=== PATIENT | female | born 1980 ===

== ENCOUNTER 2016-10-28 11:00 | Inpatient (IN) | payer MEDICAID, OTHER ==
[2016-10-28] MEDS ORDERED: Sodium Chloride 0.9% 1,000 ML IV STA (11:30)
--- NOTE | 2016-10-28 11:32 | ED PDOC ---
HPI: Abdomen Time Seen by Provider: 10/28/16 11:30 Chief Complaint (Nursing): Abdominal Pain Chief Complaint (Provider): abdominal pain History Per: Patient (36 y/o female h/o gallstones here for evaluation of epigastric pain/ruq pain intermittent x 3 days continuous since this morning. Denies any vomiting/fevers/chills. Has no h/o abdominal surgeries. Denies any chest pain. Admits h/o smoking but no ocp use.) Past Medical History Reviewed: Historical Data, Nursing Documentation, Vital Signs Vital Signs: Last Vital Signs Temp 98 F 10/28/16 11:16 Pulse 61 10/28/16 11:16 Resp 16 10/28/16 11:16 BP 143/97 H 10/28/16 11:16 Pulse Ox 96 10/28/16 14:51 - Medical History PMH: Denies: Chronic Kidney Disease - Family History Family History: States: No Known Family Hx - Home Medications Home Medications: Ambulatory Orders Medication Instructions Recorded Amoxicillin/Clavulanate Pota 1 tab PO BID #14 tab 02/03/15 [Augmentin 875 mg-125 mg] Butenafine Hydrochloride [Lotrimin 0.5 gm TOP BID #30 gm 02/03/15 Ultra] Ibuprofen [Advil] 400 mg PO PRN PRN 02/03/15 Terbinafine HCl [Lamisil At 125 ml] 125 ml TP PRN PRN 02/03/15 - Allergies Allergies/Adverse Reactions: Allergies Allergy/AdvReac Type Severity Reaction Status Date / Time No Known Allergies Allergy Verified 02/03/15 17:44 Review of Systems ROS Statement: Except As Marked, All Systems Reviewed And Found Negative Constitutional: Negative for: Fever, Chills Gastrointestinal: Positive for: Abdominal Pain. Negative for: Nausea, Vomiting Genitourinary Female: Negative for: Dysuria, Frequency, Hematuria Physical Exam - Reviewed Nursing Documentation Reviewed: Yes Vital Signs Reviewed: Yes - Physical Exam Appears: Positive for: Well, Non-toxic, No Acute Distress Head Exam: Positive for: ATRAUMATIC, NORMAL INSPECTION, NORMOCEPHALIC Skin: Positive for: Normal Color, Warm, DRY Eye Exam: Positive for: EOMI, Normal appearance, PERRL ENT: Positive for: Normal ENT Inspection Neck: Positive for: Normal, Painless ROM Cardiovascular/Chest: Positive for: Regular Rate, Rhythm Respiratory: Positive for: CNT, Normal Breath Sounds Gastrointestinal/Abdominal: Positive for: Normal Exam, Bowel Sounds, Soft, Tenderness (epigastric/ruq tenderness noted.) Back: Positive for: Normal Inspection. Negative for: L CVA Tenderness, R CVA Tenderness Extremity: Positive for: Normal ROM Neurologic/Psych: Positive for: Alert, Oriented - Laboratory Results Result Diagrams: 10/28/16 12:00 10/28/16 12:00 - ECG O2 Sat by Pulse Oximetry: 96 - Progress ED Course And Treament: Pepcid 20 mg iv x dose Morphine 4 mg iv x 1 dose Zofran 4 mg iv x 1 dose NS 1 liter 500ml per hour US: equivocal for cholecystitis. gallstones. (+) suggs's sign. No gall bladder wall edema noted d/w Dr. Garcia. Will see tomorrow. vice president regulatory made aware d/w Dr. Henao for admission. Would like zosyn for coverage of possible cholecystitis. does not meet sepsis criteria, vital wnl. Disposition - Clinical Impression Clinical Impression: Gallstone, Abnormal finding on ultrasound - Patient ED Disposition Is Patient to be Admitted: Yes - Disposition Disposition Time: 14:51 Condition: FAIR - Pt Status Changed To: Hospital Disposition Of: Inpatient - Admit Certification Admit to Inpatient:: After my assessment, the patient will require hospitalization for at least two midnights. This is because of the severity of symptoms shown, intensity of services needed, and/or the medical risk in this patient being treated as an outpatient. - POA Present On Arrival: None
[2016-10-28 12:12] LABS: BASO # 0.1 K/uL (0.0-0.2); BASO % 0.7 % (0.0-2.0); EOS # 0.3 K/uL (0.0-0.7); EOS % 2.1 % (0.0-4.0); HEMATOCRIT 41.4 % (34.0-47.0); LYMPH # 3.6 K/uL (1.0-4.3); LYMPH % 28.9 % (20.0-40.0); MEAN CELL VOLUME 89.8 fl (81.0-99.0); MEAN CORPUSCULAR HEMOGLOBIN 29.6 pg (27.0-31.0); MEAN PLATELET VOLUME 7.8 fl (7.2-11.7); MONO # 0.8 K/uL (0.0-0.8); MONO % 6.1 % (0.0-10.0); NEUT # 7.6 K/uL (1.8-7.0); NEUT % 62.2 % (50.0-75.0); RED CELL DISTRIBUTION WIDTH 13.3 % (11.5-14.5); WHITE BLOOD COUNT 12.3 K/uL (4.8-10.8)
[2016-10-28 12:21] LABS: ALB/GLOB RATIO 1.2 (1.0-2.1); ALKALINE PHOSPHATASE 125 U/L (38-126); ALT/SGPT 61 U/L (9-52); AST/SGOT 30 U/L (14-36); BILIRUBIN,TOTAL 0.3 mg/dl (0.2-1.3); BLOOD UREA NITROGEN 13 mg/dl (7-17); CALCIUM 9.7 mg/dL (8.4-10.2); CARBON DIOXIDE 25 mmol/L (22-30); CHLORIDE 106 mmol/L (98-107); GFR AFRICAN-AMERICAN > 60; GLUCOSE,RANDOM 93 mg/dL (65-105); LIPASE 50 U/L (23-300); POTASSIUM 4.2 MMOL/L (3.6-5.0); SODIUM 144 mmol/l (132-148); TOTAL PROTEIN 7.3 G/DL (6.3-8.2)
--- NOTE | 2016-10-28 13:20 | US ---
PROCEDURE: Limited abdominal ultrasound examination HISTORY: r/o cholecystitis COMPARISON: Not available TECHNIQUE: Transabdominal FINDINGS: There are mobile gallstones. The gallbladder wall is not thickened. It measures 2 mm. There is no pericholecystic fluid. A sonographic Myers sign was elicited. These findings are equivocal for cholecystitis. Limited visualization of the liver shows questionable mild intrahepatic biliary dilatation. The common bile duct is nondilated and measures 4 mm. . IMPRESSION: Cholelithiasis. Positive sonographic Myers's sign without additional signs of cholecystitis. Equivocal findings for cholecystitis. Questionable mild intrahepatic biliary dilatation without dilatation of the common bile duct. Correlate with laboratory evaluation. Limited evaluation of the liver was performed.
[2016-10-28] MEDS ORDERED: Piperacillin/Tazobact 4.5 GM in Sodium Chloride 0.9% 100 ML IVPB STA (14:10)
--- NOTE | 2016-10-28 18:07 | CP.PCM.CON ---
History of Present Illness - History of Present Illness History of Present Illness: General Surgery Consult Dr. Garcia CC: RUQ abd pain HPI: 36 y/o F w/ a known Hx of cholelithiasis presents to the ED w/ c/o of abd pain and nausea x2days. Pt indicates pain is localized to RUQ but radiates to her back as well. On presentation to the ED, pain was 10/10 but has since reduced to 7/10 w/ medication. Pain is intermittent. Pt reports feeling similar sensation a few months ago for which she received pain medication and was told to follow up as an outpatient for elective gallbladder surgery. Pain has since returned and is worse. Pt admits to lightheadedness but denies F/C, D/C, SOB, CP , hematuria, dysuria. PMHx: cholelithiasis Meds: none NKDA PSHx: none SHx: smokes 1/2ppd x 20yrs. social EtOH. daily marijuana use FHx: father - unknown cancer, CAD. Mother - multiple personality disorder Review of Systems - Review of Systems All systems: reviewed and no additional remarkable complaints except (that which stated in HPI) Past Patient History - Past Social History Smoking Status: Light Smoker < 10 Cigarettes Daily - CARDIAC Hx Cardiac Disorders: No - PULMONARY Hx Respiratory Disorders: No - NEUROLOGICAL Hx Neurological Disorder: No - HEENT Hx HEENT Problems: No - RENAL Hx Chronic Kidney Disease: No - ENDOCRINE/METABOLIC Hx Endocrine Disorders: No - HEMATOLOGICAL/ONCOLOGICAL Hx Blood Disorders: No - INTEGUMENTARY Hx Dermatological Problems: No - MUSCULOSKELETAL/RHEUMATOLOGICAL Hx Musculoskeletal Disorders: No Hx Falls: No - GASTROINTESTINAL Hx Gastrointestinal Disorders: Yes Other/Comment: Gallstones - GENITOURINARY/GYNECOLOGICAL Hx Genitourinary Disorders: No - PSYCHIATRIC Hx Psychophysiologic Disorder: No Hx Substance Use: No - SURGICAL HISTORY Hx Surgeries: No - ANESTHESIA Hx Anesthesia: No Meds Allergies/Adverse Reactions: Allergies Allergy/AdvReac Type Severity Reaction Status Date / Time No Known Allergies Allergy Verified 02/03/15 17:44 - Medications Medications: Current Medications Piperacillin Sod/Tazobactam (Sod 3.375 gm/ Sodium Chloride) 100 mls @ 100 mls/ hr IVPB Q8 TRISTAN Sodium Chloride (Sodium Chloride 0.9%) 1,000 mls @ 125 mls/hr IV .Q8H TRISTAN Stop: 10/29/16 18:01 Morphine Sulfate (Morphine) 4 mg IVP Q6 PRN PRN Reason: Pain, severe (8-10) Ondansetron HCl (Zofran Inj) 4 mg IVP Q4 PRN PRN Reason: Nausea/Vomiting Physical Exam - Constitutional Appears: Non-toxic, No Acute Distress - Head Exam Head Exam: NORMAL INSPECTION - Eye Exam Eye Exam: Normal appearance - ENT Exam ENT Exam: Mucous Membranes Moist - Respiratory Exam Respiratory Exam: NORMAL BREATHING PATTERN. absent: Accessory Muscle Use, Respiratory Distress - Cardiovascular Exam Cardiovascular Exam: absent: Bradycardia, Tachycardia - GI/Abdominal Exam GI & Abdominal Exam: Soft, Tenderness (TTP RUQ). absent: Guarding, Rebound, Rigid Additional comments: (+) Myers's sign - Extremities Exam Extremities exam: Positive for: normal inspection. Negative for: pedal edema - Neurological Exam Neurological exam: Alert, Oriented x3 - Psychiatric Exam Psychiatric exam: Normal Affect, Normal Mood - Skin Skin Exam: Dry, Intact, Normal Color, Warm Results - Vital Signs Recent Vital Signs: Last Vital Signs Temp 97.8 F 10/28/16 15:45 Pulse 68 10/28/16 17:04 Resp 19 10/28/16 17:04 BP 149/86 10/28/16 15:45 Pulse Ox 97 10/28/16 17:04 - Labs Result Diagrams: 10/28/16 12:00 10/28/16 12:00 - Imaging and Cardiology US - abdomen Status: Image reviewed by me, Report reviewed by me Assessment & Plan - Assessment and Plan (Free Text) Assessment: 36 y/o F w/ symptomatic cholelithiasis - NPO, IVF - IV Abx - pain management - Zofran 4mg Q4 - daily labs - surgery tentatively scheduled for Sunday Pt discussed w/ Dr. Jose Leary DO PGY1
[2016-10-28] MEDS: Sodium Chloride 0.9% 1,000 ML IV SCH (18:09)
[2016-10-28] MEDS ORDERED: Piperacillin/Tazobact 3.375 GM in Sodium Chloride 0.9% 100 ML IVPB SCH (22:00)
[2016-10-28] MEDS: Piperacillin/Tazobact 3.375 GM in Sodium Chloride 0.9% 100 ML IVPB SCH (22:00)
[2016-10-29] MEDS: Sodium Chloride 0.9% 1,000 ML IV SCH ×3 (03:00→17:29)
[2016-10-29] MEDS: Piperacillin/Tazobact 3.375 GM in Sodium Chloride 0.9% 100 ML IVPB SCH ×3 (06:34→21:12)
[2016-10-29 07:28] LABS: BASO % 0.6 % (0.0-2.0); EOS # 0.2 K/uL (0.0-0.7); EOS % 2.6 % (0.0-4.0); HEMATOCRIT 36.8 % (34.0-47.0); LYMPH # 2.6 K/uL (1.0-4.3); LYMPH % 36.9 % (20.0-40.0); MEAN CELL VOLUME 89.1 fl (81.0-99.0); MEAN CORPUSCULAR HGB CONC 33.7 g/dL (33.0-37.0); MEAN PLATELET VOLUME 7.9 fl (7.2-11.7); MONO # 0.5 K/uL (0.0-0.8); MONO % 7.1 % (0.0-10.0); NEUT # 3.8 K/uL (1.8-7.0); NEUT % 52.8 % (50.0-75.0); NRBC % 0.1 % (0.0-0.0); RED CELL DISTRIBUTION WIDTH 13.3 % (11.5-14.5); WHITE BLOOD COUNT 7.1 K/uL (4.8-10.8)
[2016-10-29 07:35] LABS: ALB/GLOB RATIO 1.1 (1.0-2.1); ALKALINE PHOSPHATASE 136 U/L (38-126); ALT/SGPT 418 U/L (9-52); AST/SGOT 292 U/L (14-36); BILIRUBIN,TOTAL 0.9 mg/dl (0.2-1.3); BLOOD UREA NITROGEN 8 mg/dl (7-17); CALCIUM 8.6 mg/dL (8.4-10.2); CARBON DIOXIDE 27 mmol/L (22-30); CHLORIDE 109 mmol/L (98-107); GFR AFRICAN-AMERICAN > 60; GLUCOSE,RANDOM 92 mg/dL (65-105); SODIUM 143 mmol/l (132-148); TOTAL PROTEIN 5.7 G/DL (6.3-8.2)
--- NOTE | 2016-10-29 09:05 | CARD ---
APPROVED REPORT EKG Measurement Heart [id number] HI [id number] [id number] <Conclusion> Sinus bradycardia Otherwise normal ECG
--- NOTE | 2016-10-29 10:56 | CP.PCM.PN ---
Subjective - Date & Time of Evaluation Date of Evaluation: 10/29/16 Time of Evaluation: 08:55 - Subjective Subjective: General Surgery Dr. Garcia Pt S&E @bedside. NAEO. no complaints. denies RUQ, F/C, N/V. Objective - Vital Signs/Intake and Output Vital Signs (last 24 hours): Temp Pulse Resp BP Pulse Ox 97.8 F 48 L 20 115/72 97 10/29/16 07:47 10/29/16 07:47 10/29/16 07:47 10/29/16 07:47 10/29/16 07:47 - Medications Medications: Current Medications Sodium Chloride (Sodium Chloride 0.9%) 1,000 mls @ 125 mls/hr IV .Q8H TRISTAN Stop: 10/29/16 18:01 Last Admin: 10/29/16 03:00 Dose: 125 mls/hr Piperacillin Sod/Tazobactam (Sod 3.375 gm/ Sodium Chloride) 100 mls @ 100 mls/ hr IVPB Q8@2200,0600,1400 TRISTAN Last Admin: 10/29/16 06:34 Dose: 100 mls/hr Morphine Sulfate (Morphine) 4 mg IVP Q6 PRN PRN Reason: Pain, severe (8-10) Last Admin: 10/28/16 18:07 Dose: 4 mg Ondansetron HCl (Zofran Inj) 4 mg IVP Q4 PRN PRN Reason: Nausea/Vomiting - Labs Labs: 10/29/16 05:30 10/29/16 05:30 Laboratory Tests 10/29/16 05:30 Calcium 8.6 Total Bilirubin 0.9 AST 292 H D ALT 418 H D Alkaline Phosphatase 136 H Total Protein 5.7 L Albumin 3.0 L D - Constitutional Appears: Non-toxic, No Acute Distress - Head Exam Head Exam: NORMAL INSPECTION - Eye Exam Eye Exam: Normal appearance - ENT Exam ENT Exam: Mucous Membranes Moist - Respiratory Exam Respiratory Exam: NORMAL BREATHING PATTERN. absent: Accessory Muscle Use, Respiratory Distress - GI/Abdominal Exam GI & Abdominal Exam: Soft. absent: Distended, Guarding, Tenderness, Rebound Additional comments: (-) [place] - Neurological Exam Neurological Exam: Alert, Awake, Oriented x3 - Psychiatric Exam Psychiatric exam: Normal Affect, Normal Mood - Skin Skin Exam: Dry, Intact, Normal Color, Warm Assessment and Plan - Assessment and Plan (Free Text) Assessment: 36 y/o F w/ biliary cholic - Cont NPO, IVF - IV Abx - pain management - OR tentatively for tomorrow. may be discharged if pt wants surgery as outpatient. - f/u AM labs Pt seen and discussed w/ Dr. Jose Leary DO PGY1
[2016-10-29] MEDS ORDERED: Piperacillin/Tazobact 3.375 GM in Sodium Chloride 0.9% 100 ML IVPB SCH (22:00)
--- NOTE | 2016-10-30 00:37 | CP.PCM.HP ---
History of Present Illness - History of Present Illness History of Present Illness: This is a 36 y/o female with hx of cholelithiais was admitted last night for increasing abdominal pains with nausea. Claims that pain was unbearable and persistent and was mostly in the right upper quadrant at times with sensation of being pierced form RUQ to the back. She was advised previously about having an elective surgery. Present on Admission - Present on Admission Any Indicators Present on Admission: No History of DVT/PE: No History of Uncontrolled Diabetes: No Urinary Catheter: No Decubitus Ulcer Present: No Review of Systems - Gastrointestinal Gastrointestinal: Abdominal Pain, Bloating Past Patient History - Past Social History Smoking Status: Light Smoker < 10 Cigarettes Daily - CARDIAC Hx Cardiac Disorders: No - PULMONARY Hx Respiratory Disorders: No - NEUROLOGICAL Hx Neurological Disorder: No - HEENT Hx HEENT Problems: No - RENAL Hx Chronic Kidney Disease: No - ENDOCRINE/METABOLIC Hx Endocrine Disorders: No - HEMATOLOGICAL/ONCOLOGICAL Hx Blood Disorders: No - INTEGUMENTARY Hx Dermatological Problems: No - MUSCULOSKELETAL/RHEUMATOLOGICAL Hx Musculoskeletal Disorders: No Hx Falls: No - GASTROINTESTINAL Hx Gastrointestinal Disorders: Yes Other/Comment: Gallstones - GENITOURINARY/GYNECOLOGICAL Hx Genitourinary Disorders: No - PSYCHIATRIC Hx Psychophysiologic Disorder: No Hx Substance Use: No - SURGICAL HISTORY Hx Surgeries: No - ANESTHESIA Hx Anesthesia: No Meds Allergies/Adverse Reactions: Allergies Allergy/AdvReac Type Severity Reaction Status Date / Time No Known Allergies Allergy Verified 02/03/15 17:44 Physical Exam - Head Exam Head Exam: NORMAL INSPECTION - Eye Exam Eye Exam: Normal appearance - ENT Exam ENT Exam: Mucous Membranes Moist - Respiratory Exam Respiratory Exam: Clear to Auscultation Bilateral - Cardiovascular Exam Cardiovascular Exam: REGULAR RHYTHM - GI/Abdominal Exam GI & Abdominal Exam: Normal Bowel Sounds, Tenderness - Neurological Exam Neurological exam: CN II-XII Intact Results - Vital Signs Recent Vital Signs: Last Vital Signs Temp 98.1 F 10/29/16 21:46 Pulse 50 L 10/29/16 21:46 Resp 18 10/29/16 21:46 BP 153/90 H 10/29/16 21:46 Pulse Ox 97 10/29/16 21:46 - Labs Result Diagrams: 10/29/16 05:30 10/29/16 05:30 Labs: Laboratory Results - last 24 hr 10/29/16 05:30 WBC 7.1 RBC 4.13 Hgb 12.4 Hct 36.8 MCV 89.1 MCH 30.0 MCHC 33.7 RDW 13.3 Plt Count 289 MPV 7.9 Neut % (Auto) 52.8 Lymph % (Auto) 36.9 Richardson % (Auto) 7.1 Eos % (Auto) 2.6 Baso % (Auto) 0.6 Neut # 3.8 Lymph # 2.6 Richardson # 0.5 Eos # 0.2 Baso # 0.0 ESR 16 Sodium 143 Potassium 4.0 Chloride 109 H Carbon Dioxide 27 Anion Gap 11 BUN 8 Creatinine 0.7 Est GFR ( Amer) > 60 Est GFR (Non-Af Amer) > 60 Random Glucose 92 Calcium 8.6 Total Bilirubin 0.9 AST 292 H D ALT 418 H D Alkaline Phosphatase 136 H Total Protein 5.7 L Albumin 3.0 L D Globulin 2.8 Albumin/Globulin Ratio 1.1 Assessment & Plan (1) Cholelithiasis Status: Acute - Assessment and Plan (Free Text) Plan: Con tmeds NPO Hydrate pain meds' surgical eval medically stable for surgery.
[2016-10-30] MEDS: Sodium Chloride 0.9% 1,000 ML IV SCH ×2 (02:39→10:28)
[2016-10-30] MEDS: Piperacillin/Tazobact 3.375 GM in Sodium Chloride 0.9% 100 ML IVPB SCH ×3 (06:02→21:38)
[2016-10-30 09:11] LABS: PARTIAL THROMBOPLASTIN TIME 28.9 SECONDS (23.3-32.5)
[2016-10-30 10:10] LABS: ALB/GLOB RATIO 1.2 (1.0-2.1); ALKALINE PHOSPHATASE 130 U/L (38-126); ALT/SGPT 303 U/L (9-52); AST/SGOT 116 U/L (14-36); BILIRUBIN,TOTAL 0.8 mg/dl (0.2-1.3); BLOOD UREA NITROGEN 8 mg/dl (7-17); CARBON DIOXIDE 23 mmol/L (22-30); CHLORIDE 106 mmol/L (98-107); GFR AFRICAN-AMERICAN > 60; GLUCOSE,RANDOM 52 mg/dL (65-105); POTASSIUM 3.7 MMOL/L (3.6-5.0); SODIUM 143 mmol/l (132-148); TOTAL PROTEIN 6.3 G/DL (6.3-8.2)
[2016-10-30] MEDS ORDERED: Sevoflurane - Inhalation Anesthetic Liq (250 ml) ONE (12:41)
[2016-10-30] MEDS ORDERED: Rocuronium 10 mg/ml (5 ml) ONE (12:41)
[2016-10-30] MEDS ORDERED: Propofol 10 mg/ml Inj (20 ML) ONE (12:41)
[2016-10-30] MEDS ORDERED: Desflurane Inhalation Anesthetic Liq (240 ml) ONE (12:41)
[2016-10-30] MEDS ORDERED: Succinylcholine 200 mg/10 ml Inj IV ONE (12:42)
[2016-10-30] MEDS ORDERED: Bupivacaine 0.5% Inj(30mL) ONE (13:03)
[2016-10-30] MEDS ORDERED: Bupivacaine 0.5% Inj(30mL) IJ ONE (13:12)
[2016-10-30] MEDS ORDERED: Neostigmine Methylsulfate 2 MG/2 ML ML IV ONE (13:51)
[2016-10-30] MEDS: HYDROmorphone 0.5 mg/0.5 ml ISec IVP PRN ×7 (14:15→15:20)
[2016-10-30] MEDS ORDERED: Oxycodone/Acetaminophen 5/325 mg Tab PO PRN (14:20)
--- NOTE | 2016-10-30 14:21 | PCM.SURG1 ---
Surgeon's Initial Post Op Note - Surgeon's Notes Surgeon: Dr. Garcia Survey Party Chief: Dr. Beard, Dr. Mckeon PGY2; Dr Leary PGY1 Type of Anesthesia: General Endo Pre-Operative Diagnosis: Cholecystitis Operative Findings: same Post-Operative Diagnosis: same Operation Performed: Laparoscopic Cholecystectomy Specimen/Specimens Removed: gallbladder Estimated Blood Loss: EBL {In ML}: 10 Blood Products Given: N/A Drains Used: No Drains Post-Op Condition: Good Date of Surgery/Procedure: 10/30/16 Time of Surgery/Procedure: 14:21
[2016-10-31 05:31] VITALS: RESP 18
[2016-10-31] MEDS: Piperacillin/Tazobact 3.375 GM in Sodium Chloride 0.9% 100 ML IVPB SCH (05:45)
[2016-10-31] MEDS: Sodium Chloride 0.9% 1,000 ML IV SCH (05:47)
[2016-10-31 07:40] VITALS: BP 126/77; PULSE 70; TEMP 98.7; O2SAT 97
--- NOTE | 2016-10-31 07:46 | CP.PCM.PN ---
<RashidLon france - Last Filed: 10/31/16 08:38> Subjective - Date & Time of Evaluation Date of Evaluation: 10/31/16 Time of Evaluation: 07:20 - Subjective Subjective: General Surgery Dr. Garcia Pt S&E @bedside for POD#1. No complaints, resting comfortably, minor abdominal discomfort at incision sites. Jacob post-operative N/V/F/C/Cp/SOB> Objective - Vital Signs/Intake and Output Vital Signs (last 24 hours): Temp Pulse Resp BP Pulse Ox 98.7 F 70 18 126/77 97 10/31/16 07:39 10/31/16 07:39 10/31/16 07:39 10/31/16 07:39 10/31/16 07:39 - Medications Medications: Current Medications Piperacillin Sod/Tazobactam (Sod 3.375 gm/ Sodium Chloride) 100 mls @ 100 mls/ hr IVPB Q8@2200,0600,1400 TRISTAN Last Admin: 10/31/16 05:45 Dose: 100 mls/hr Morphine Sulfate (Morphine) 4 mg IVP Q4H PRN PRN Reason: Pain, moderate (4-7) Ondansetron HCl (Zofran Inj) 4 mg IVP Q4 PRN PRN Reason: Nausea/Vomiting Oxycodone/Acetaminophen (Percocet 5/325 Mg Tab) 1 tab PO Q4 PRN PRN Reason: Pain, moderate (4-7) Stop: 11/02/16 14:21 - Labs Labs: 10/29/16 05:30 10/30/16 09:29 PT 12.0 SECONDS (9.6-11.2) H 10/30/16 05:50 INR 1.15 (0.92-1.08) H 10/30/16 05:50 APTT 28.9 SECONDS (23.3-32.5) 10/30/16 05:50 - Constitutional Appears: Well, Non-toxic, No Acute Distress - Respiratory Exam Respiratory Exam: Clear to Ausculation Bilateral, NORMAL BREATHING PATTERN. absent: Chest Wall Tenderness - GI/Abdominal Exam GI & Abdominal Exam: Guarding (along incision sites), Soft, Tenderness (along incision sites. ), Normal Bowel Sounds Assessment and Plan - Assessment and Plan (Free Text) Assessment: 36 y/o F POD#1-Laparoscopic Cholecystectomy Plan: - IV Abx - pain management - pt is recovering well and is stable from general surgery standpoint for discharge home. To followup with Dr. Garcia within 14 days time. Pt seen and discussed w/ Dr. Garcia <Farzad Beard - Last Filed: 10/31/16 10:38> Subjective - Date & Time of Evaluation Date of Evaluation: 10/31/16 Time of Evaluation: 10:10 - Subjective Subjective: Patient was seen and examined at the bedside. Agree with the resident's note above. Objective - Vital Signs/Intake and Output Vital Signs (last 24 hours): Temp Pulse Resp BP Pulse Ox 98.7 F 70 18 126/77 97 10/31/16 07:39 10/31/16 07:39 10/31/16 07:39 10/31/16 07:39 10/31/16 07:39 - Medications Medications: Current Medications Piperacillin Sod/Tazobactam (Sod 3.375 gm/ Sodium Chloride) 100 mls @ 100 mls/ hr IVPB Q8@2200,0600,1400 TRISTAN Last Admin: 10/31/16 05:45 Dose: 100 mls/hr Morphine Sulfate (Morphine) 4 mg IVP Q4H PRN PRN Reason: Pain, moderate (4-7) Ondansetron HCl (Zofran Inj) 4 mg IVP Q4 PRN PRN Reason: Nausea/Vomiting Oxycodone/Acetaminophen (Percocet 5/325 Mg Tab) 1 tab PO Q4 PRN PRN Reason: Pain, moderate (4-7) Stop: 11/02/16 14:21 Last Admin: 10/31/16 08:22 Dose: 1 tab - Labs Labs: 10/31/16 09:20 10/31/16 09:20 PT 12.0 SECONDS (9.6-11.2) H 10/30/16 05:50 INR 1.15 (0.92-1.08) H 10/30/16 05:50 APTT 28.9 SECONDS (23.3-32.5) 10/30/16 05:50 Assessment and Plan - Assessment and Plan (Free Text) Plan: - Pain control - Regular diet - Insentive spirometry - Clear for discharge home from the surgical stand point - Augmentin 875/125 mg po Q12h for 5 days after discharge - Patient will follow up with Dr. Garcia in 10 days in 2 weeks in the office for post-op visit
[2016-10-31 09:23] LABS: BASO % 0.5 % (0.0-2.0); EOS # 0.1 K/uL (0.0-0.7); EOS % 0.7 % (0.0-4.0); HEMATOCRIT 34.9 % (34.0-47.0); LYMPH # 2.4 K/uL (1.0-4.3); MEAN CELL VOLUME 87.6 fl (81.0-99.0); MEAN CORPUSCULAR HEMOGLOBIN 30.3 pg (27.0-31.0); MEAN CORPUSCULAR HGB CONC 34.5 g/dL (33.0-37.0); MEAN PLATELET VOLUME 7.3 fl (7.2-11.7); MONO # 0.3 K/uL (0.0-0.8); MONO % 3.1 % (0.0-10.0); NEUT % 71.7 % (50.0-75.0); RED CELL DISTRIBUTION WIDTH 13.2 % (11.5-14.5); WHITE BLOOD COUNT 9.8 K/uL (4.8-10.8)
[2016-10-31 09:36] LABS: ALB/GLOB RATIO 1.2 (1.0-2.1); ALKALINE PHOSPHATASE 142 U/L (38-126); ALT/SGPT 218 U/L (9-52); AST/SGOT 82 U/L (14-36); BILIRUBIN,TOTAL 0.9 mg/dl (0.2-1.3); BLOOD UREA NITROGEN 5 mg/dl (7-17); CALCIUM 8.8 mg/dL (8.4-10.2); CARBON DIOXIDE 23 mmol/L (22-30); CHLORIDE 106 mmol/L (98-107); GFR AFRICAN-AMERICAN > 60; GLUCOSE,RANDOM 179 mg/dL (65-105); POTASSIUM 3.4 MMOL/L (3.6-5.0); SODIUM 141 mmol/l (132-148); TOTAL PROTEIN 6.2 G/DL (6.3-8.2)
--- NOTE | 2016-10-31 10:03 | OP ---
PROCEDURE DATE: 10/30/2016 OPERATION PERFORMED: Laparoscopic cholecystectomy. SURGEON: David Garcia MD DIRECTOR MARKETING: Farzad Beard MD SECOND DIRECTOR MARKETING: Dr. Mckeon ANESTHESIA: General. PREOPERATIVE DIAGNOSIS: Cholecystitis. POSTOPERATIVE DIAGNOSIS: Cholecystitis. OPERATIVE FINDINGS: Cystic duct, cystic artery identified, critical view obtained. ESTIMATED BLOOD LOSS: Minimal. PREPARATION AND PROCEDURE: The patient was taken to the Operating Room and placed supine on the oper ating table. After induction of general anesthesia, the abdomen was prepped and draped in a standard surgical fashion. A Veress needle was inserted into the abdomen through the umbilicus. The abdomen was insufflated. Once sufficient CO2 was entered into the abdomen, a 10 mm trocar was placed throug h the umbilicus and a diagnostic laparoscopy was performed. The patient was then placed into the rev ersed Trendelenburg left side down position and the subxiphoid and two right-sided trocars were place d under direct vision. The gallbladder was grasped from the fundus and pulled upwards and the neck o f the gallbladder was pulled outwards exposing the triangle of Calot. Blunt dissection with a Satnam lozano dissector was used to isolate the contents of the triangle of Calot. Once the contents of the tri angle were isolated. The cystic duct was identified and seen to be entering the gallbladder. The cy stic duct was then clipped and divided. The cystic artery was then encircled clipped and divided in a similar fashion. The gallbladder was then taken off the gallbladder fossa using the electrocautery . Once the gallbladder was off the gallbladder fossa, it was placed into an EndoCatch bag. The righ t upper quadrant was copiously irrigated. The gallbladder fossa was checked for bleeding. There was no evidence of bleeding. The irrigant was removed. The gallbladder was then removed via the umbili namoi trocar site. The trocars were then removed under direct vision. The umbilical trocar site was c losed using #0 Vicryl. The skin incisions were closed using #4-0 Monocryl and the patient had 10 cc of 1% Marcaine infiltrated into all the wounds. The patient tolerated the procedure well. There wer e no complications. The sponge, instrument and needle counts were correct at the end of the case. POSTOPERATIVE CONDITION: The patient was then awakened from general anesthesia, transported to the ecovery Room in satisfactory condition. David Garcia MD cc: 139 TT: 10/31/2016 10:03:21 román
--- NOTE | 2016-10-31 11:22 | CP.PCM.DIS ---
Provider - Provider Date of Admission: 10/28/16 14:15 Attending physician: Gulshan Henao MD Time Spent in preparation of Discharge (in minutes): 45 Hospital Course - Lab Results Lab Results: Most Recent Lab Values WBC 9.8 K/uL (4.8-10.8) 10/31/16 09:20 RBC 3.98 Mil/uL (3.80-5.20) 10/31/16 09:20 Hgb 12.0 g/dL (12.0-16.0) 10/31/16 09:20 Hct 34.9 % (34.0-47.0) 10/31/16 09:20 MCV 87.6 fl (81.0-99.0) 10/31/16 09:20 MCH 30.3 pg (27.0-31.0) 10/31/16 09:20 MCHC 34.5 g/dL (33.0-37.0) 10/31/16 09:20 RDW 13.2 % (11.5-14.5) 10/31/16 09:20 Plt Count 291 K/uL (130-400) 10/31/16 09:20 MPV 7.3 fl (7.2-11.7) 10/31/16 09:20 Neut % (Auto) 71.7 % (50.0-75.0) 10/31/16 09:20 Lymph % (Auto) 24.0 % (20.0-40.0) 10/31/16 09:20 Rosebud % (Auto) 3.1 % (0.0-10.0) 10/31/16 09:20 Eos % (Auto) 0.7 % (0.0-4.0) 10/31/16 09:20 Baso % (Auto) 0.5 % (0.0-2.0) 10/31/16 09:20 Neut # 7.0 K/uL (1.8-7.0) 10/31/16 09:20 Lymph # 2.4 K/uL (1.0-4.3) 10/31/16 09:20 Rosebud # 0.3 K/uL (0.0-0.8) 10/31/16 09:20 Eos # 0.1 K/uL (0.0-0.7) 10/31/16 09:20 Baso # 0.0 K/uL (0.0-0.2) 10/31/16 09:20 ESR 16 mm/hr (0-20) 10/29/16 05:30 PT 12.0 SECONDS (9.6-11.2) H 10/30/16 05:50 INR 1.15 (0.92-1.08) H 10/30/16 05:50 APTT 28.9 SECONDS (23.3-32.5) 10/30/16 05:50 Sodium 141 mmol/l (132-148) 10/31/16 09:20 Potassium 3.4 MMOL/L (3.6-5.0) L 10/31/16 09:20 Chloride 106 mmol/L (98-107) 10/31/16 09:20 Carbon Dioxide 23 mmol/L (22-30) 10/31/16 09:20 Anion Gap 15 (10-20) 10/31/16 09:20 BUN 5 mg/dl (7-17) L 10/31/16 09:20 Creatinine 0.7 mg/dL (0.7-1.2) 10/31/16 09:20 Est GFR ( Amer) > 60 10/31/16 09:20 Est GFR (Non-Af Amer) > 60 10/31/16 09:20 Random Glucose 179 mg/dL (65-105) H 10/31/16 09:20 Calcium 8.8 mg/dL (8.4-10.2) 10/31/16 09:20 Total Bilirubin 0.9 mg/dl (0.2-1.3) 10/31/16 09:20 AST 82 U/L (14-36) H D 10/31/16 09:20 ALT 218 U/L (9-52) H D 10/31/16 09:20 Alkaline Phosphatase 142 U/L (38-126) H 10/31/16 09:20 Total Protein 6.2 G/DL (6.3-8.2) L 10/31/16 09:20 Albumin 3.4 g/dL (3.5-5.0) L 10/31/16 09:20 Globulin 2.8 gm/dL (2.2-3.9) 10/31/16 09:20 Albumin/Globulin Ratio 1.2 (1.0-2.1) 10/31/16 09:20 Lipase 50 U/L (23-300) 10/28/16 12:00 - Hospital Course Hospital Course: 36F symptomatic cholelithiasis now POD1 lap noel doing well. Stable for discharge to home. Discharge Exam - Head Exam Head Exam: ATRAUMATIC, NORMAL INSPECTION - Eye Exam Eye Exam: EOMI, Normal appearance - ENT Exam ENT Exam: Mucous Membranes Moist, Normal Exam - Respiratory Exam Respiratory Exam: Clear to PA & Lateral, NORMAL BREATHING PATTERN. absent: Rales, Wheezes - Cardiovascular Exam Cardiovascular Exam: REGULAR RHYTHM. absent: JVD - GI/Abdominal Exam GI & Abdominal Exam: Normal Bowel Sounds, Soft, Tenderness (Appropriately ttp) - Neurological Exam Neurological exam: Alert, Oriented x3 - Psychiatric Exam Psychiatric exam: Normal Affect, Normal Mood - Skin Skin Exam: Normal Color, Warm Discharge Plan - Follow Up Plan Condition: FAIR Disposition: HOME/ ROUTINE Patient education suggested?: Yes Instructions: Laparoscopic Cholecystectomy (DC) Referrals: David Garcia MD [Staff Provider] - (10 days)
[2016-10-31] MEDS ORDERED: Potassium Chloride 20 mEq ER Tab PO ONE (12:53)
== END 2016-10-31 16:01 | disposition home or self-care (01) | DRG 494 ==
LOC: H.ER 11:00 → H.ERHOLD 14:15 → H.MEDSURG1 15:42
PROVIDERS: ADMIT Family Medicine; ATTEND Family Medicine
PROC: 0FT44ZZ Resection of Gallbladder, Percutaneous Endoscopic Approach (ICD-10-PCS; principal; 2016-10-30 12:30)
DX: K80.10 Calculus of gallbladder with chronic cholecystitis without obstruction (principal); Z87.891 Personal history of nicotine dependence

== ENCOUNTER 2018-08-01 11:51 | Emergency (ER) | payer MEDICAID ==
[2018-08-01 12:34] VITALS: RESP 18; TEMP 98.7; O2SAT 99
--- NOTE | 2018-08-01 14:06 | ED PDOC ---
HPI: CCC, URI, Sore Throat Time Seen by Provider: 08/01/18 12:38 Chief Complaint (Nursing): ENT Problem Chief Complaint (Provider): Throat Pain History Per: Patient History/Exam Limitations: no limitations Onset/Duration Of Symptoms: Days (x3) Current Symptoms Are (Timing): Still Present Additional Complaint(s): 38 year old female presents to the ED for evaluation of throat pain associated with a headache, cough, bilateral ear pain, and body aches for the past three days. She reports the throat pain is worsening, with pain on swallowing. Otherwise denies sick contacts, recent travel, nausea/vomiting, abdominal pain, chest pain, rash, urinary symptoms, weakness/numbness, and visual changes. LNMP: currently PMD: cannot recall Past Medical History Reviewed: Historical Data, Nursing Documentation, Vital Signs Vital Signs: Last Vital Signs Temp 98.7 F 08/01/18 12:33 Pulse 65 08/01/18 12:33 Resp 18 08/01/18 12:33 BP 148/90 08/01/18 12:33 Pulse Ox 99 08/01/18 12:33 - Medical History PMH: No Chronic Diseases - Surgical History Surgical History: Cholecystectomy - Family History Family History: States: Unknown Family Hx - Social History Current smoker - smoking cessation education provided: No Alcohol: None Drugs: Denies - Home Medications Home Medications: Ambulatory Orders Medication Instructions Recorded Amoxicillin/Clavulanate [Augmentin 1 tab PO Q12 #10 tab 10/31/16 875 MG-125 MG] RX: oxyCODONE/Acetaminophen 1 tab PO Q6 PRN #8 tab 10/31/16 [Percocet 5/325 mg Tab] RX: Amoxicillin 875 mg PO BID #14 tab 08/01/18 RX: Naproxen 500 mg PO BID PRN #20 tablet. 08/01/18 - Allergies Allergies/Adverse Reactions: Allergies Allergy/AdvReac Type Severity Reaction Status Date / Time acetaminophen [From Percocet] Allergy Intermediate RASH Verified 08/01/18 14:19 oxycodone [From Percocet] Allergy Intermediate RASH Verified 08/01/18 14:19 Review of Systems ROS Statement: Except As Marked, All Systems Reviewed And Found Negative Constitutional: Positive for: Other (body aches) Eyes: Negative for: Vision Change ENT: Positive for: Ear Pain (bilateral), Throat Pain (pain on swallowing) Cardiovascular: Negative for: Chest Pain Respiratory: Positive for: Cough Gastrointestinal: Negative for: Vomiting, Abdominal Pain Skin: Negative for: Rash Neurological: Positive for: Headache Physical Exam - Reviewed Nursing Documentation Reviewed: Yes Vital Signs Reviewed: Yes - Physical Exam Comments: GENERAL APPEARANCE: Patient is awake, alert, oriented x 3, in no acute distress. Resting comfortably. SKIN: Warm, dry; (-) rash. EYES: (-) conjunctival pallor, (-) scleral icterus, (-) conjunctival hemorrhage. ENMT: Mucous membranes moist. TMs: Left: (+) bulging, (-) erythema; Right: (-) bulging, (+) erythema. Airway patent: (-) stridor. Pharynx: uvula midline (+) erythema, (+) bilateral exudate, (+) 3+ tonsilar hypertrophy bilaterally (-) drooling (-) muffled voice (-) tongue elevation. NECK: Supple, FROM (-) tenderness, (-) stiffness, (-) meningismus, (-) lymphadenopathy. CHEST AND RESPIRATORY: (-) rales, (-) rhonchi, (-) wheezes; breath sounds equal bilaterally. Respirations nonlabored. HEART AND CARDIOVASCULAR: (-) irregularity ABDOMEN AND GI: Soft; (-) tenderness, (-) guarding (-) CVA tenderness. EXTREMITIES: (-) deformity NEURO AND PSYCH: Mental status as above; (-) focal findings. Gait: steady. Speech: clear. (-) facial asymmetry - ECG O2 Sat by Pulse Oximetry: 99 (RA) Pulse Ox Interpretation: Normal Medical Decision Making Medical Decision Making: Initial Impression: throat pain, tonsillitis Time: 1315 Initial Plan: --Amoxicillin 500mg PO --Naproxen 500mg PO --Throat culture --Influenza A B swab --Rapid strep swab 1450 Rapid Strep: Negative On re-evaluation, patient reports improvement of symptoms. On exam, patient remains AAOx3, in no acute distress. Vitals stable. Lab/Diagnostic results d/w the patient in great detail. Diagnosis of tonsillitis/pharyngitis d/w the patient. Based on history, exam and diagnostic results, plan will be for outpatient follow up with PMD/ENT. Patient instructed to follow-up with pmd / referral provided / the clinic in 1- 2 days without fail. Advised to take medication as prescribed. Return to the emergency room at any time for any new or worsening symptoms. Patient states she fully agrees with and understands discharge instructions. States that she agrees with the plan and disposition. Verbalized and repeated discharge instructions and plan. I have given the patient opportunity to ask any additional questions. ----- Scribe Attestation: Documented by Cheryl Guillen, acting as a scribe for Lacey Conner PA-C. Provider Scribe Attestation: All medical record entries made by the Scribe were at my direction and personally dictated by me. I have reviewed the chart and agree that the record accurately reflects my personal performance of the history, physical exam, medical decision making, and the department course for this patient. I have also personally directed, reviewed, and agree with the discharge instructions and disposition. Disposition - Clinical Impression Clinical Impression: Tonsillitis with exudate, Pharyngitis - Patient ED Disposition Is Patient to be Admitted: No Counseled Patient/Family Regarding: Studies Performed, Diagnosis, Need For Followup, Rx Given - Disposition Referrals: Terrence Rodriguez MD [Staff Provider] - primary, doctor [Other] Disposition: Routine/Home Disposition Time: 14:50 Condition: STABLE Additional Instructions: The emergency medical care you received today was directed at your acute symptoms. If you were prescribed any medication, please fill it and take as directed. It may take several days for your symptoms to resolve. Return to the Emergency Department if your symptoms worsen, do not improve, or if you have any other problems. Please contact your doctor in 2 days for re-evaluation and follow up / or call one of the physicians/clinics you have been referred to that are listed on the Patient Visit Information form that is included in your discharge packet. Bring any paperwork you were given at discharge with you along with any medications you are taking to your follow up visit. Our treatment cannot replace ongoing medical care by a primary care provider (PCP) outside of the emergency department. Prescriptions: RX: Amoxicillin 875 mg PO BID #14 tab RX: Naproxen 500 mg PO BID PRN #20 tablet.dr CHRISTINA Reason: Pain, Moderate (4-7) Instructions: Sore Throat in Adults Forms: [employer] (Mauritian), [facility] ED School/Work Excuse Print Language: MONGOLIAN - POA Present On Arrival: None Results - Lab Results Lab Results: 08/01/18 14:30 Grp A Beta Strep Ag Negative
[2018-08-01] MEDS ORDERED: Naproxen 500 MG TAB PO STA (14:21)
[2018-08-01] MEDS ORDERED: Naproxen 500 MG TAB PO ONE (14:25)
[2018-08-01 15:09] VITALS: BP 136/78; PULSE 72
== END 2018-08-01 15:09 | disposition home or self-care (01) ==
LOC: H.ER 11:51
DX: J03.90 Acute tonsillitis, unspecified (principal); Z88.5 Allergy status to narcotic agent